=== PATIENT | female | born 1985 | race African-American/Black ===

== ENCOUNTER 2021-05-15 04:51 | Inpatient (IN) ==
[2021-05-15] MEDS ORDERED: BUTORPHANOL 2 MG/ML VIAL IV PRN (05:51)
[2021-05-15] MEDS ORDERED: AMPICILLIN INJ 2,000 MG in SODIUM CHLORIDE 0.9% 100 ML IV ONE (06:05)
[2021-05-15 06:41] LABS: Basophils % 0.2 % (0.0-0.8); Eosinophils # 0.2 10*3/uL (0.0-0.87); Eosinophils % 1.1 % (0.00-10.9); Hemoglobin 9.7 GM/DL (12.0-16.0); Immature Granulocytes % 0.6 %; Immature Granulocytes Absolute 0.09 #; Lymphocytes # 2.6 10*3/uL (1.4-4.0); Lymphocytes % 18.2 % (21.3-54.2); Mean Corpuscular HGB Conc 31.3 GM/DL (32-36); Mean Corpuscular Volume 89.9 FL (87-102); Mean Platelet Volume 9.3 FL (9.6-12.0); Monocytes % 5.9 % (1.7-12.7); Platelet Count 410 T/CUMM (130-400); Red Blood Count 3.45 MC/CUMM (3.8-5.5); Red Cell Distribution Width 13.5 % (9.3-17.3)
[2021-05-15] MEDS: LACTATED RINGERS 1,000 ML IV SCH ×2 (07:05→13:13)
[2021-05-15] MEDS ORDERED: FAMOTIDINE 20 MG/2 ML VIAL IV ONE (08:02)
[2021-05-15] MEDS ORDERED: CITRIC ACID/SODIUM CITRATE 30 ML UDCUP PO ONE (08:02)
[2021-05-15] MEDS ORDERED: NALOXONE 0.4 MG/ML VIAL IV PRN (08:02)
[2021-05-15] MEDS ORDERED: ePHEDrine 50 MG/ML VIAL IV PRN (08:02)
[2021-05-15] MEDS ORDERED: LACTATED RINGERS 1,000 ML IV ONE ×2 (08:02→14:36)
[2021-05-15] MEDS ORDERED: diphenhydrAMINE 50 MG/1 ML VIAL IV PRN ×2 (08:02)
[2021-05-15] MEDS ORDERED: OXYTOCIN/LR 20 UNIT/1,000 ML BAG IV SCH (08:30)
[2021-05-15] MEDS ORDERED: fentaNYL 2 MCG/ROPIV 0.2% EPID 100 ML EPIDURAL SCH (08:30)
[2021-05-15] MEDS ORDERED: AMPICILLIN INJ 2,000 MG in SODIUM CHLORIDE 0.9% 100 ML IV SCH (08:30)
[2021-05-15] MEDS ORDERED: AMPICILLIN INJ 1,000 MG in SODIUM CHLORIDE 0.9% 100 ML IV SCH (10:15)
[2021-05-15 11:14] LABS: Bilirubin,Urine Negative (Negative); Blood, Urine Negative (Negative); Glucose,Urine (UA) Negative (Negative); Ketones,Urine Negative (Negative); Mucus,Urine Occasional /LPF (Occasional); Nitrite,Urine Negative (Negative); Protein,Urine Negative; Urine Appearance CLEAR (Clear); Urine Color Yellow (Yellow); Urine Specific Gravity 1.016 (1.001-1.035); Urine Urobilinogen < 2.0 EU/DL (<2.0)
[2021-05-15] MEDS ORDERED: TRANEXAMIC ACID 1,000 MG/10 ML VIAL ONE (11:28)
[2021-05-15] MEDS ORDERED: SODIUM CHLORIDE 0.9% 0 ML IV ONE (11:28)
[2021-05-15] MEDS ORDERED: miSOPROStoL 200 MCG TABLET ONE (11:28)
[2021-05-15] MEDS ORDERED: OXYTOCIN/LR 20 UNIT/1,000 ML BAG IV ONE ×2 (11:29→16:10)
[2021-05-15] MEDS ORDERED: CARBOPROST TROMETHAMINE 250 MCG/ML AMP IM ONE (11:29)
[2021-05-15] MEDS ORDERED: METHYLERGONOVINE 0.2 MG/1 ML AMP ONE (11:29)
[2021-05-15 11:48] LABS: Cord Arterial Blood HCO3 21.2 MMOL/L
[2021-05-15 11:51] LABS: Cord Venous Blood HCO3 22.8 MMOL/L; Cord Venous Blood PCO2 53.4 MMHG; Cord Venous Blood PO2 27.1
[2021-05-15] MEDS ORDERED: miSOPROStoL 200 MCG TABLET RECTAL ONE (11:59)
[2021-05-15] MEDS ORDERED: LIDOCAINE 2% 5 ML VIAL ONE (14:15)
[2021-05-15] MEDS ORDERED: propofoL 200 MG/20 ML VIAL IV ONE (14:15)
[2021-05-15] MEDS ORDERED: SUCCINYLCHOLINE 200 MG/10 ML VIAL ONE (14:15)
[2021-05-15] MEDS ORDERED: ROCURONIUM 50 MG/5 ML VIAL IV ONE (14:15)
[2021-05-15] MEDS ORDERED: ONDANSETRON 4 MG/2 ML VIAL ONE (14:36)
[2021-05-15] MEDS ORDERED: DEXAMETHASONE 4 MG/1 ML VIAL ONE (14:36)
[2021-05-15] MEDS ORDERED: SEVOFLURANE 1 UNIT/15 MINUTE INH ONE (14:36)
[2021-05-15] MEDS ORDERED: ceFAZolin 1,000 MG VIAL ONE (14:36)
[2021-05-15] MEDS ORDERED: PHENYLEPHRINE 1 MG/10 ML SYRINGE IV ONE (14:48)
[2021-05-15] MEDS ORDERED: HYDROCORTISONE 2.5% RECTAL CREAM 30 GM TUBE TOP PRN (16:10)
[2021-05-15] MEDS ORDERED: ONDANSETRON 4 MG/2 ML VIAL IV PRN (16:10)
[2021-05-15] MEDS ORDERED: BENZOCAINE 20%/MENTHOL 0.5% SPRAY 56 GM CAN TOP PRN (16:10)
[2021-05-15] MEDS ORDERED: ACETAMINOPHEN 325 MG TABLET PO PRN (16:10)
[2021-05-15] MEDS ORDERED: oxyCODONE/ACETAMINOPHEN 5-325 MG TABLET PO PRN (16:10)
[2021-05-15] MEDS ORDERED: RHO(D) IMMUNE GLOBULIN 300 MCG SYRINGE IM ONE (16:10)
[2021-05-15] MEDS ORDERED: BISACODYL 10 MG SUPP RECTAL PRN (16:10)
[2021-05-15] MEDS ORDERED: LANOLIN 50% CREAM 0.3 OZ TUBE TOP PRN (16:10)
[2021-05-15] MEDS ORDERED: DIPH/TET/ACEL PERT BOOSTER VACCINE 0.5 ML VIAL IM ONE (16:10)
[2021-05-15] MEDS ORDERED: MEASLES/MUMPS/RUBELLA VACCINE 0.5 ML VIAL SUBCUT ONE (16:10)
[2021-05-15] MEDS ORDERED: WITCH HAZEL PADS 100/JAR TOP PRN (16:10)
[2021-05-15] MEDS: DOCUSATE SODIUM 100 MG CAPSULE PO SCH (20:35)
[2021-05-15] MEDS: IBUPROFEN 800 MG TABLET PO PRN (20:36)
[2021-05-15] MEDS ORDERED: METHYLERGONOVINE 0.2 MG TABLET PO SCH (22:00)
[2021-05-16] MEDS: IBUPROFEN 800 MG TABLET PO PRN ×3 (02:40→21:14)
[2021-05-16 05:26] LABS: Basophils % 0.1 % (0.0-0.8); Hematocrit 19.7 VOL% (35.7-47.0); Immature Granulocytes % 1.8 %; Immature Granulocytes Absolute 0.49 #; Lymphocytes # 2.7 10*3/uL (1.4-4.0); Lymphocytes % 10.3 % (21.3-54.2); Mean Corpuscular HGB Conc 31.5 GM/DL (32-36); Mean Corpuscular Volume 91.2 FL (87-102); Monocytes % 6.3 % (1.7-12.7); Neutrophils % 81.5 % (38.7-73.9); Platelet Count 361 T/CUMM (130-400); Red Blood Count 2.16 MC/CUMM (3.8-5.5); Red Cell Distribution Width 13.5 % (9.3-17.3); White Blood Count 26.7 T/CUMM (4-12)
[2021-05-16 06:06] LABS: Hemoglobin 6.2 GM/DL (12.0-16.0)
[2021-05-16 06:09] LABS: Hypochromia 1+; Lymphocytes 8 % (20-55); Microcytosis 1+; Platelet Estimate Adequate; Segmented Neutrophils 85 % (50-85); Total Cells Counted 100
[2021-05-16] MEDS ORDERED: SODIUM CHLORIDE 0.9% 1,000 ML IV PRN ×2 (06:17→06:20)
[2021-05-16] MEDS: DOCUSATE SODIUM 100 MG CAPSULE PO SCH ×3 (07:40→20:36)
[2021-05-16] MEDS: IRON (CARBONYL)/VIT C/B12/FA TABLET PO SCH ×2 (07:41→09:36)
[2021-05-16] MEDS: oxyCODONE/ACETAMINOPHEN 5-325 MG TABLET PO PRN ×2 (07:43→13:20)
[2021-05-16] MEDS: ONDANSETRON 4 MG/2 ML VIAL IV PRN ×2 (09:00→17:16)
[2021-05-16] MEDS ORDERED: AMPICILLIN/SULBACTAM 3,000 MG in SODIUM CHLORIDE 0.9% 100 ML IV ONE (14:00)
[2021-05-16 17:20] LABS: Hematocrit 23.5 VOL% (35.7-47.0); Hemoglobin 7.6 GM/DL (12.0-16.0)
[2021-05-16] MEDS ORDERED: SCOPOLAMINE 1.5 MG PATCH TRANSDERM SCH (18:16)
[2021-05-16] MEDS: AMPICILLIN/SULBACTAM 1,500 MG in SODIUM CHLORIDE 0.9% 100 ML IV SCH (20:31)
[2021-05-17] MEDS: AMPICILLIN/SULBACTAM 1,500 MG in SODIUM CHLORIDE 0.9% 100 ML IV SCH ×2 (02:20→08:06)
[2021-05-17] MEDS: oxyCODONE/ACETAMINOPHEN 5-325 MG TABLET PO PRN (02:29)
[2021-05-17] MEDS: IRON (CARBONYL)/VIT C/B12/FA TABLET PO SCH (08:06)
[2021-05-17] MEDS: DOCUSATE SODIUM 100 MG CAPSULE PO SCH (08:06)
[2021-05-17 08:25] VITALS: BP 115/60
== END 2021-05-17 11:52 | disposition home or self-care (01) | DRG 797 ==
LOC: N.LD 04:51 → N.OB 16:10
PROVIDERS: ADMIT Specialist; ATTEND Specialist

== ENCOUNTER 2021-06-02 04:00 | Inpatient (IN) ==
[2021-06-02] MEDS ORDERED: ONDANSETRON 4 MG/2 ML VIAL IV STA (04:25)
[2021-06-02] MEDS ORDERED: SODIUM CHLORIDE 0.9% 500 ML IV STA (04:25)
[2021-06-02] MEDS ORDERED: MORPHINE 2 MG/1 ML SYRINGE IV STA (04:51)
[2021-06-02 04:52] LABS: Basophils # 0.1 10*3/uL (0.0-0.2); Basophils % 0.3 % (0.0-0.8); Eosinophils # 0.2 10*3/uL (0.0-0.87); Eosinophils % 0.7 % (0.00-10.9); Hemoglobin 7.7 GM/DL (12.0-16.0); Immature Granulocytes % 0.9 %; Lymphocytes # 3.3 10*3/uL (1.4-4.0); Lymphocytes % 14.5 % (21.3-54.2); Mean Corpuscular HGB Conc 30.8 GM/DL (32-36); Mean Corpuscular Volume 90.3 FL (87-102); Mean Platelet Volume 8.7 FL (9.6-12.0); Monocytes % 6.9 % (1.7-12.7); Neutrophils % 76.7 % (38.7-73.9); Platelet Count 679 T/CUMM (130-400); Red Blood Count 2.77 MC/CUMM (3.8-5.5); Red Cell Distribution Width 14.6 % (9.3-17.3); White Blood Count 22.8 T/CUMM (4-12)
[2021-06-02 05:01] LABS: PT Patient Result 11.3 SECS (10.5-12.0)
[2021-06-02 05:08] LABS: Bilirubin,Urine Negative (Negative); Blood, Urine Large mg/dL (Negative); Glucose,Urine (UA) Negative (Negative); Ketones,Urine Negative (Negative); Nitrite,Urine Negative (Negative); Protein,Urine 100 MG/DL; RBC,Urine 2144 /HPF (0-4); Urine Appearance Slightly Hazy (Clear); Urine Color Red (Yellow); Urine Specific Gravity 1.016 (1.001-1.035)
[2021-06-02 05:11] LABS: Alanine Aminotransferase 10 U/L (13-56); Albumin 2.6 G/DL (3.4-5.0); Alkaline Phosphatase 125 U/L (45-117); Aspartate Amino Transferase 22 U/L (0-37); Bilirubin,Total < 0.39 MG/DL (0.20-1.00); Blood Urea Nitrogen 7 MG/DL (7-18); Calcium 9.2 MG/DL (8.5-10.1); Carbon Dioxide 22 MMOL/L (21-32); Estimated Glom Filtration Rate 131 ML/MIN; Glucose 121 MG/DL (74-106); Osmolality,Calculated 268.1 MOS/KG (273-304); Potassium 3.9 MMOL/L (3.5-5.1); Sodium 135 MMOL/L (136-145)
[2021-06-02 05:17] LABS: Eosinophils 2 % (0-10); Hypochromia 1+; Lymphocytes 14 % (20-55); Microcytosis 1+; Platelet Estimate Increased; Segmented Neutrophils 79 % (50-85); Total Cells Counted 100
[2021-06-02] MEDS ORDERED: cefTRIAXone 1,000 MG in SODIUM CHLORIDE 0.9% 100 ML IV STA (05:29)
[2021-06-02] MEDS ORDERED: MORPHINE 2 MG/1 ML SYRINGE IV PRN (06:13)
[2021-06-02] MEDS ORDERED: BISACODYL 10 MG SUPP RECTAL PRN (06:13)
[2021-06-02] MEDS ORDERED: ONDANSETRON 4 MG/2 ML VIAL IV PRN (06:13)
[2021-06-02] MEDS ORDERED: ACETAMINOPHEN 325 MG TABLET PO PRN (06:13)
[2021-06-02] MEDS ORDERED: SODIUM CHLORIDE 0.9% 1,000 ML IV PRN (06:13)
[2021-06-02] MEDS ORDERED: MAGNESIUM HYDROXIDE SUSP 30 ML UDCUP PO PRN (06:13)
[2021-06-02] MEDS ORDERED: SODIUM CHLORIDE 0.9% 1,000 ML IV SCH (06:30)
[2021-06-02] MEDS: miSOPROStoL 200 MCG TABLET RECTAL SCH ×2 (09:02→17:12)
[2021-06-02] MEDS: IBUPROFEN 800 MG TABLET PO PRN ×2 (09:19→18:21)
[2021-06-02] MEDS ORDERED: oxyCODONE/ACETAMINOPHEN 5-325 MG TABLET PO PRN (19:14)
[2021-06-02] MEDS: oxyCODONE/ACETAMINOPHEN 5-325 MG TABLET PO PRN (19:26)
[2021-06-02] MEDS: DOCUSATE SODIUM 100 MG CAPSULE PO SCH (19:26)
[2021-06-02 20:55] LABS: Hematocrit 25.6 VOL% (35.7-47.0)
[2021-06-02] MEDS ORDERED: miSOPROStoL 200 MCG TABLET VAG ONE (22:01)
[2021-06-02] MEDS: FERROUS SULFATE 325 MG TABLET PO SCH (22:53)
[2021-06-02] MEDS ORDERED: miSOPROStoL 200 MCG TABLET RECTAL ONE (23:00)
[2021-06-03] MEDS: DOCUSATE SODIUM 100 MG CAPSULE PO SCH ×4 (01:52→20:37)
[2021-06-03] MEDS: oxyCODONE/ACETAMINOPHEN 5-325 MG TABLET PO PRN ×2 (04:08→19:11)
[2021-06-03] MEDS: cefTRIAXone 1,000 MG in SODIUM CHLORIDE 0.9% 100 ML IV SCH ×2 (05:10→08:04)
[2021-06-03 07:15] LABS: Basophils # 0.1 10*3/uL (0.0-0.2); Basophils % 0.3 % (0.0-0.8); Eosinophils # 0.4 10*3/uL (0.0-0.87); Eosinophils % 1.7 % (0.00-10.9); Hematocrit 23.6 VOL% (35.7-47.0); Hemoglobin 7.3 GM/DL (12.0-16.0); Immature Granulocytes % 0.9 %; Immature Granulocytes Absolute 0.18 #; Lymphocytes # 2.9 10*3/uL (1.4-4.0); Lymphocytes % 13.7 % (21.3-54.2); Mean Corpuscular HGB Conc 30.9 GM/DL (32-36); Mean Corpuscular Volume 90.4 FL (87-102); Mean Platelet Volume 8.9 FL (9.6-12.0); Monocytes % 7.1 % (1.7-12.7); NRBC # 0.02 10*3/uL; Neutrophils % 76.3 % (38.7-73.9); Platelet Count 584 T/CUMM (130-400); Red Blood Count 2.61 MC/CUMM (3.8-5.5); Red Cell Distribution Width 15.6 % (9.3-17.3); White Blood Count 21.1 T/CUMM (4-12)
[2021-06-03 07:29] LABS: Alanine Aminotransferase < 9 U/L (13-56); Albumin 2.2 G/DL (3.4-5.0); Alkaline Phosphatase 107 U/L (45-117); Aspartate Amino Transferase 13 U/L (0-37); Bilirubin,Total < 0.39 MG/DL (0.20-1.00); Blood Urea Nitrogen 9 MG/DL (7-18); Calcium 8.4 MG/DL (8.5-10.1); Carbon Dioxide 26 MMOL/L (21-32); Estimated Glom Filtration Rate 182 ML/MIN; Glucose 115 MG/DL (74-106); Osmolality,Calculated 274.7 MOS/KG (273-304); Potassium 4.1 MMOL/L (3.5-5.1); Sodium 138 MMOL/L (136-145); Total Protein 6.9 G/DL (6.4-8.2)
[2021-06-03] MEDS ORDERED: SODIUM CHLORIDE 0.9% 1,000 ML IV PRN (08:04)
[2021-06-03] MEDS ORDERED: SUCCINYLCHOLINE 200 MG/10 ML VIAL ONE (08:34)
[2021-06-03] MEDS ORDERED: propofoL 200 MG/20 ML VIAL IV ONE (08:34)
[2021-06-03] MEDS ORDERED: fentaNYL 100 MCG/2 ML VIAL ONE (08:34)
[2021-06-03] MEDS ORDERED: LIDOCAINE 2% 5 ML VIAL ONE (08:34)
[2021-06-03] MEDS ORDERED: ETOMIDATE 40 MG/20 ML VIAL IV ONE (08:35)
[2021-06-03] MEDS ORDERED: METOCLOPRAMIDE 10 MG/2 ML VIAL ONE (08:55)
[2021-06-03] MEDS: FERROUS SULFATE 325 MG TABLET PO SCH ×4 (09:00→23:12)
[2021-06-03] MEDS ORDERED: CALCIUM CHLORIDE 1,000 MG/10 ML VIAL IV ONE (09:03)
[2021-06-03] MEDS ORDERED: SEVOFLURANE 1 UNIT/15 MINUTE INH ONE (09:05)
[2021-06-03] MEDS ORDERED: PHENYLEPHRINE 1 MG/10 ML SYRINGE IV ONE (09:05)
[2021-06-03] MEDS ORDERED: OXYTOCIN/LR 20 UNIT/1,000 ML BAG IV ONE (09:14)
[2021-06-03] MEDS ORDERED: LEVOFLOXACIN INJ 500 MG/100 ML PREMIX IV ONE (09:26)
[2021-06-03] MEDS ORDERED: CLINDAMYCIN INJ 900 MG/50 ML PREMIX IV ONE (09:26)
[2021-06-03] MEDS ORDERED: HYDROmorphone 2 MG/1 ML VIAL IV PRN (10:02)
[2021-06-03] MEDS ORDERED: ONDANSETRON 4 MG/2 ML VIAL IV PRN (10:02)
[2021-06-03 10:13] LABS: Eosinophils 2 % (0-10); Hypochromia 2+; Lymphocytes 8 % (20-55); Segmented Neutrophils 87 % (50-85); Total Cells Counted 100
[2021-06-03 10:14] LABS: Platelet Estimate Increased; Polychromasia Slight
[2021-06-03] MEDS: IBUPROFEN 800 MG TABLET PO PRN (19:11)
[2021-06-04] MEDS: IBUPROFEN 800 MG TABLET PO PRN ×2 (02:08→08:10)
[2021-06-04] MEDS: cefTRIAXone 1,000 MG in SODIUM CHLORIDE 0.9% 100 ML IV SCH ×2 (05:17→05:51)
[2021-06-04 05:29] LABS: Basophils % 0.1 % (0.0-0.8); Eosinophils # 0.4 10*3/uL (0.0-0.87); Hematocrit 23.6 VOL% (35.7-47.0); Hemoglobin 7.4 GM/DL (12.0-16.0); Immature Granulocytes % 1.3 %; Immature Granulocytes Absolute 0.19 #; Lymphocytes # 1.7 10*3/uL (1.4-4.0); Mean Corpuscular HGB Conc 31.4 GM/DL (32-36); Mean Corpuscular Volume 90.8 FL (87-102); Mean Platelet Volume 8.8 FL (9.6-12.0); Monocytes % 5.4 % (1.7-12.7); Neutrophils % 78.2 % (38.7-73.9); Platelet Count 525 T/CUMM (130-400); White Blood Count 14.1 T/CUMM (4-12)
[2021-06-04] MEDS: FERROUS SULFATE 325 MG TABLET PO SCH (08:10)
[2021-06-04] MEDS: DOCUSATE SODIUM 100 MG CAPSULE PO SCH (08:20)
[2021-06-04 09:18] VITALS: BP 116/57
== END 2021-06-04 09:47 | disposition home or self-care (01) | DRG 769 ==
LOC: N.EDINP 04:00 → N.ED 04:00 → N.OB 07:30
PROVIDERS: ADMIT Specialist; ATTEND Specialist